=== PATIENT | female | born 1970 | race Caucasian/White ===

== ENCOUNTER → 2017-08-16 | Outpatient (CLI) | payer OTHER | LOC: FIMAGING 10:47 | PROVIDERS: ATTEND Family Medicine | DX: K59.00 Constipation, unspecified (principal) ==

== ENCOUNTER 2017-12-21 13:46 | Emergency (ER) | payer OTHER ==
[2017-12-21 13:53] VITALS: BP 99/51
[2017-12-21] MEDS ORDERED: NS 1,000 ML IV ONE (15:08)
--- NOTE | 2017-12-21 15:13 | EDPHY ---
H & P Time Seen by Provider: 12/21/17 14:42 HPI/ROS: HPI Cramping and legs. 47-year-old female by private vehicle. This patient reports that she underwent ECT therapy on Monday. She reports that since Monday she has had severe cramping in her bilateral lower extremities. She describes this as muscle cramping from her gluteal area bilaterally down through her thighs and calf musculature. She reports it as being symmetrical bilaterally. She is not on a statin medication. There is no history of trauma. She denies any back pain. No loss of sensation or weakness in her lower extremities. She denies any asymmetric leg swelling or shortness of breath. Denies DVT risk factors. ROS: Constitutional: No fever, no chills. No weakness. Respiratory: No cough. No shortness of breath. Cardiac: No chest pain, no palpitations. Gastrointestinal: No abdominal pain, no vomiting, no diarrhea. Genitourinary: No hematuria. No dysuria or increased frequency with urination. Musculoskeletal: No back pain. No neck pain. As above. Skin: No rashes. Neurological: No headache. No focal weakness or altered sensation. Past medical history: Depression, anxiety, ECT. Social history: Nonsmoker. Denies alcohol. No drugs. Here by herself. Physical Exam: General Appearance: Alert, no distress. This patient is responding to questions appropriately and in full sentences. This patient appears well- hydrated and well-nourished. Eyes: Pupils equal and round no pallor or injection. No lid edema, erythema or injection. Respiratory: There are no retractions, lungs are clear to auscultation with good air movement bilaterally. Cardiovascular: Regular rate and rhythm. No murmur. Gastrointestinal: Abdomen is soft and nontender, no masses, bowel sounds normal. No focal tenderness at McBurney's point. No Butler sign. Neurological: Motor sensory function is grossly intact. Cranial nerves are normal. Gait is normal. Skin: Warm and dry, no rashes. Musculoskeletal: Neck is supple and nontender. No midline tenderness of the thoracic, lumbar, sacral spine. No paraspinal tenderness or sacroiliac tenderness on palpation of the sacroiliac areas. Extremities are symmetrical. All joints range without pain or impingement. A muscle compartments in the thighs and legs are all soft. There are no rashes. No palpable cords. Negative Homans sign bilaterally. No soft tissue edema, erythema, ecchymosis or rash noted. Psychiatric: No agitation. No depression. Database: EKG: Imaging: Procedures: Emergency department course: Vital signs reviewed and are unremarkable. It is possible that the muscle cramping is related to her ECT. IV was placed. She will be given a L of IV normal saline. Electrolytes as well as CK will be checked. 4:00 p.m., patient re-evaluated. Resting comfortably at this time. I discussed the results of her blood work. Her vital signs have been reviewed and are normal. She feels comfortable going home at this time. Plan will be to prescribe her Flexeril for 3 days as well as high-dose ibuprofen. She is to follow up with her primary care physician for re-evaluation in 2-3 days. Return to emergency department precautions were thoroughly reviewed with her. All of her questions were answered. She was discharged from the emergency department in good condition. Differential Diagnosis: The differential diagnosis on this patient includes but is not limited to muscle cramps, electrolyte abnormality. DVT, compartment syndrome, rhabdomyolysis, statin medication reaction unlikely. This represents a partial list of diagnoses considered. These considerations are based on history, physical exam, past history, reassessment and diagnostic testing. Smoking Status: Never smoked Constitutional: Initial Vital Signs Temperature (C) 36.6 C 12/21/17 13:50 Heart Rate 62 12/21/17 13:50 Respiratory Rate 20 12/21/17 13:50 Blood Pressure 99/51 L 12/21/17 13:50 O2 Sat (%) 100 12/21/17 13:50 O2 Delivery Mode Room Air Allergies/Adverse Reactions: No Known Allergies Allergy (Verified 12/21/17 13:47) Home Medications: Medication Instructions Recorded Acyclovir 800 mg PO HS PRN 07/07/17 Calcium 500 mg PO DAILY 07/07/17 IRON 65 mg PO BID 07/07/17 [place] Carbonate 600 mg cap (*) 600 mg PO DAILY 07/07/17 Magnesium 800 mg PO BID 07/07/17 [place] 3 1,000 mg Softgel 1,000 mg PO DAILY 07/07/17 Phenergan 25mg (*) 25 mg PO Q6H PRN 07/07/17 Vitamin C 500 mg (*) 500 mg PO DAILY 07/07/17 Vitamin D3 (*) 4,000 units PO DAILY 07/07/17 ACETAMINOPHEN 1,000 mg PO TID PRN 08/07/17 Dilaudid 0.5 - 1 tab PO Q4H PRN 08/07/17 LaMICtal 500 mg PO DAILY 08/07/17 Lexapro 20 mg PO 08/07/17 traZODone 100 mg PO 08/07/17 Miralax 17 gm (*) 1 PO DAILY 11/13/17 Cyclobenzaprine [Flexeril 10 MG 10 mg PO TID #9 tab 12/21/17 (*)] Medical Decision Making - Data Points Laboratory Results: Laboratory Results 12/21/17 15:14 12/21/17 12/21/17 15:14 15:14 Sodium 135 mEq/L mEq/L (135-145) Potassium 4.2 mEq/L mEq/L (3.3-5.0) Chloride 98 mEq/L mEq/L (97-110) Carbon Dioxide 29 mEq/l mEq/l (22-31) Anion Gap 8 mEq/L mEq/L (8-16) BUN 12 mg/dL mg/dL (7-23) Creatinine 0.8 mg/dL mg/dL (0.6-1.0) Estimated GFR > 60 Glucose 104 mg/dL H mg/dL (70-100) Calcium 10.0 mg/dL mg/dL (8.5-10.4) Creatine Kinase 75 IU/L IU/L (0-156) Beta HCG, Qual NEGATIVE Medications Given: Discontinued Medications Sodium Chloride (Ns) 1,000 mls @ 0 mls/hr IV EDNOW ONE; Wide Open PRN Reason: Protocol Stop: 12/21/17 15:09 Last Admin: 12/21/17 15:17 Dose: 1,000 mls Departure - Departure Disposition: Home, Routine, Self-Care Clinical Impression: Muscle cramps Condition: Good Instructions: Leg Cramps (ED) Additional Instructions: Read and follow provided instructions. Follow-up with your primary care physician in 2-3 days for re-evaluation as discussed. Take medication as prescribed for muscle cramps. Ibuprofen dosin mg every 6 hours with meals for the next 3 days only. Take only as needed for pain. Return to the emergency department for worsening symptoms, fever, leg swelling, shortness of breath or other serious concerns. Referrals: Sophie Oconnor MD [Primary Care Provider] - As per Instructions Prescriptions: Cyclobenzaprine [Flexeril 10 MG (*)] 10 mg PO TID #9 tab
[2017-12-21 15:32] LABS: CREATINE KINASE 75 IU/L (0-156)
== END 2017-12-21 16:15 | disposition home or self-care (01) ==
DX: R25.2 Cramp and spasm (principal); E86.9 Volume depletion, unspecified

== ENCOUNTER → 2018-02-21 | Outpatient (CLI) | payer OTHER | LOC: FIMAGING 16:23 | PROVIDERS: ATTEND Family Medicine | DX: M25.532 Pain in left wrist (principal) ==

== ENCOUNTER → 2018-10-19 | Outpatient (CLI) | payer OTHER | LOC: FIMAGING 14:52 | PROVIDERS: ATTEND Family Medicine | DX: Z12.31 Encounter for screening mammogram for malignant neoplasm of breast (principal) ==